=== PATIENT | male | born 1935 | race Caucasian/White ===

== ENCOUNTER 2016-07-26 08:20 | Emergency (ER) | payer MEDICARE, OTHER ==
[~2016-07-26 08:20] MED LIST: ACETAMINOPHEN650 M4 PO; AGGRENOX 25 MG-1 CAP PO; AMLODIPINE BESYL5 MG PO; ASPIRIN EC325 M1 PO; ATENOLOL25 MG PO; ATORVASTATIN CA40 M1 PO; CENTRUM SILVER1 EAC5 PO; CIPRO250 MG PO; COLACE100 M1 PO; COLACE100 MG PO; COUMADIN10 M1 PO; COUMADIN5 M2 PO; COUMADIN5 MG PO; COUMADIN7.5 M1 PO; FISH OIL 1,0001 EA10 PO; FLOMAX0.4 MG PO; FLONASE ALLERG9.9 ML; FUROSEMIDE20 M1 PO; FUROSEMIDE20 MG PO; LOSARTAN POTASS25 M1 PO; LOVENOX; LOVENOX100 MG/1 M SQ; LOVENOX40 MG/0.4 SQ; MIRALAX17 G2 PO; MONTELUKAST SOD10 M2 PO; MULTIVITAMIN1 TAB PO; OXYCODONE/APAP PO; OXYCONTIN20 M2 PO; PENICILLIN V P500 M1 PO; PERCOCET 5-3251 EACH PO; PROMETHAZINE HC25 M3 PO; SIMVASTATIN40 MG PO
[2016-07-26] MEDS ORDERED: TYLENOL EXTRA500 M1 PO (08:48)
[2016-07-26] MEDS ORDERED: COLACE100 M1 PO (08:48)
[2016-07-26] MEDS ORDERED: MIRALAX17 G2 PO (08:48)
[2016-07-26] MEDS ORDERED: AGGRENOX 25 MG1 EACH (08:50)
[2016-07-26] MEDS ORDERED: ZYRTEC10 M7 PO (08:51)
[2016-07-26] MEDS ORDERED: VITAMIN D400 UNI5 PO (08:53)
[2016-07-26 09:33] LABS: INR 2.7 INR (0.9-1.1); PROTHROMBIN TIME 32.1 SECONDS (9.0-13.6)
== END 2016-07-26 10:44 ==
LOC: EDMED 08:20
PROVIDERS: Emergency Medicine
DX: M79.662 Pain in left lower leg (principal); I25.10 Atherosclerotic heart disease of native coronary artery without angina pectoris; I25.2 Old myocardial infarction; I10 Essential (primary) hypertension; Z86.73 Personal history of transient ischemic attack (TIA), and cerebral infarction without residual deficits; Z86.718 Personal history of other venous thrombosis and embolism; Z87.442 Personal history of urinary calculi; Z95.1 Presence of aortocoronary bypass graft; Z95.5 Presence of coronary angioplasty implant and graft; Z79.01 Long term (current) use of anticoagulants; Z79.82 Long term (current) use of aspirin; Z79.899 Other long term (current) drug therapy

== ENCOUNTER 2016-09-29 09:50 | Emergency (ER) | payer MEDICARE, OTHER ==
[~2016-09-29 09:50] MED LIST changes: +AGGRENOX 25 MG1 EACH; +TYLENOL EXTRA500 M1 PO; +VITAMIN D400 UNI5 PO; +ZYRTEC10 M7 PO
[2016-09-29] MEDS ORDERED: DIPYRIDAMOLE PO (10:12)
[2016-09-29 11:15] LABS: BASO % 0.4 % (0-2); EOS % 1.6 % (0-7); EOSINOPHIL ABSOLUTE COUNT 0.1 tho/cmm (0.0-0.7); HCT-HEMATOCRIT 43.3 % (36.0-53.5); HGB-HEMOGLOBIN 14.4 gm/dl (13.5-17.0); IMMATURE GRANULOCYTES ABSOLUTE 0.01 tho/cmm (0-0.03); IMMATURE GRANULOCYTES PERCENT 0.2 % (0-0.3); LYMPH % 25.9 % (20-45); LYMPH ABSOLUTE COUNT 1.4 tho/cmm (0.8-4.5); MCH (MEAN CORPUSCULAR HGB) 29.9 pg (28.0-32.0); MCHC MEAN CORPUSCULAR HGB CONC 33.3 % (32.0-36.0); MEAN PLATELET VOLUME 10.4 cmc (9.4-12.4); MONO % 6.5 % (0-12); MONOCYTE ABSOLUTE COUNT 0.4 tho/cmm (0.0-1.2); NEUTROPHIL ABSOLUTE COUNT 3.6 tho/cmm (1.6-8.0); NEUTROPHIL-AUTOMATED 3.6 tho/cmm (1.6-8.0); NEUTROPHILS % 65.4 % (40-80); PLATELET COUNT 196 tho/cmm (150-450); RED BLOOD COUNT 4.81 mil/cmm (4.40-5.70); RED CELL DISTRIBUTION WIDTH 13.5 % (12.4-16.4); WHITE BLOOD COUNT 5.5 tho/cmm (4.0-10.0)
[2016-09-29 11:17] LABS: INR 2.7 INR (0.9-1.1); PROTHROMBIN TIME 32.5 SECONDS (9.0-13.6)
[2016-09-29 11:31] LABS: ANION GAP 13 mmol/L (0-20); BLOOD UREA NITROGEN 11 mg/dl (6-24); CALCIUM 8.6 mg/dl (8.5-10.5); CARBON DIOXIDE-VENOUS 26 mmol/L (22-32); CHLORIDE 105 mmol/l (96-110); CREATININE 1.02 mg/dl (0.60-1.30); GLUCOSE 85 mg/dL (70-110); POTASSIUM 4.6 mmol/L (3.7-5.1); SODIUM 139 mmol/L (135-145); eGFR VALUE FOR BLACK 81 mL/Min
== END 2016-09-29 13:06 ==
LOC: EDMED 09:50
PROVIDERS: Emergency Medicine
DX: M62.81 Muscle weakness (generalized) (principal); R00.1 Bradycardia, unspecified; Z86.718 Personal history of other venous thrombosis and embolism; Z86.711 Personal history of pulmonary embolism; Z79.01 Long term (current) use of anticoagulants; Z79.82 Long term (current) use of aspirin; Z98.890 Other specified postprocedural states